=== PATIENT | female | born 1970 | race Caucasian/White ===

== ENCOUNTER 2016-08-19 00:40 | Emergency (ER) | payer SELFPAY ==
[~2016-08-19] VITALS: Ht 162.6 cm; Wt 61.5 kg
[2016-08-19 00:44] VITALS: Ht 162.6 cm; Wt 61.5 kg
== END 2016-08-19 01:19 | disposition left against medical advice (07) ==
LOC: FTE 00:40
DX: Z53.21 Procedure and treatment not carried out due to patient leaving prior to being seen by health care provider (principal)